=== PATIENT | male | born 1985 | race Caucasian/White ===

== ENCOUNTER 2019-04-17 19:44 | Emergency (ER) | payer SELFPAY ==
[~2019-04-17] VITALS: Ht 185.4 cm; Wt 64.0 kg
--- NOTE | 2019-04-17 19:51 | PHYS DOC ---
Past History Smoking: Cigarettes Adult General Chief Complaint Chief Complaint: LACERATION/AVULSION..." I was cutting some board backing with a hook knife.. with my Lt. hand.. and slipped getting this cut to my Rt. hand... ".. " I was at Urgent care.. .and they sent me here... they numbed it up.. and washed it good..." HPI HPI Patient is a 33 year old male who presents with laceration 12 cm laceration to right hand .Patient was seen at urgent care where laceration was cleaned. Concern for an arterial bleed, so patient sent to the emergency department. Currently no active bleeding. Distal sensation intact. Patient tetanus is reportedly up-to-date. No recent travel. No history immunosuppression. Patient does smoke. Patient is right-hand dominant. Review of Systems Review of Systems Constitutional: Denies fever or chills [] Eyes: Denies change in visual acuity, redness, or eye pain [] HENT: Denies nasal congestion or sore throat [] Respiratory: Denies cough or shortness of breath [] Cardiovascular: No additional information not addressed in HPI [] GI: Denies abdominal pain, nausea, vomiting, bloody stools or diarrhea [] : Denies dysuria or hematuria [] Musculoskeletal: Denies back pain or joint pain [] Integument: Denies rash or skin lesions []complaints of laceration to right hand Neurologic: Denies headache, focal weakness or sensory changes [] Endocrine: Denies polyuria or polydipsia [] All other systems were reviewed and found to be within normal limits, except as documented in this note. Family History Family History Noncontributory Current Medications Current Medications See nursing for home meds Allergies Allergies No known drug allergies Physical Exam Physical Exam Constitutional: Moderate acute distress, non-toxic appearance. [] HENT: Normocephalic, atraumatic, bilateral external ears normal, oropharynx moist, no oral exudates, nose normal. Poor dentition Eyes: PERRLA, EOMI, conjunctiva normal, no discharge. [] Neck: Normal range of motion, no tenderness, supple, no stridor. [] Cardiovascular:Heart rate regular rhythm, no murmur [] Lungs & Thorax: Bilateral breath sounds equal apex with scattered wheezes on auscultation [] Abdomen: Bowel sounds normal, soft, no tenderness, no masses, no pulsatile masses. [] Skin: Warm, dry, no erythema, no rash. [] Back: No tenderness, no CVA tenderness. [] Extremities: No tenderness, no cyanosis, no clubbing, ROM intact, no edema. [] Laceration right hand as per history of present illness Neurologic: Alert and oriented X 3, normal motor function, normal sensory function, no focal deficits noted. [] Psychologic: Affect anxious, judgement normal, mood normal. [] EKG EKG [] Radiology/Procedures Radiology/Procedures [] Course & Med Decision Making Course & Med Decision Making Pertinent Labs and Imaging studies reviewed. (See chart for details) Procedure note-approximately 10-12 cm laceration. The hand clean with saline and Betadine. Injected lidocaine along edge. Reinforced and irrigated laceration and range of motion with normal saline. Closed laceration with 4 mattress sutures. And then 12 running sutures 4-0 Prolene. Patient keep laceration clean and dry. Monitor closely for infection. Use Polysporin 4 times a day. Follow-up primary care. Sutures to be removed in 10 days. Patient return if any concerns. Tylenol and ibuprofen for pain. Impression- 1. Laceration 10-12 cm [] Dragon Disclaimer Dragon Disclaimer This electronic medical record was generated, in whole or in part, using a voice recognition dictation system. Departure Departure: Disposition: 01 HOME/RESIDENCE PRIOR TO ADM Condition: STABLE Referrals: PCP,CONSUELO (PCP) HEAVEN MUÑIZ MD Apr 17, 2019 19:51
[2019-04-17] MEDS ORDERED: DIPHTH,PERTUSS(ACELL),TET TOX 0.5 ML DISP.SYRIN. VAX IM ONE (21:30)
[2019-04-17 21:55] VITALS: BP 112/64
== END 2019-04-17 21:58 | disposition home or self-care (01) ==
LOC: ER 19:44
DX: S61.411A Laceration without foreign body of right hand, initial encounter (principal); F17.210 Nicotine dependence, cigarettes, uncomplicated; W26.0XXA Contact with knife, initial encounter; Y93.89 Activity, other specified; Y92.89 Other specified places as the place of occurrence of the external cause; Y99.8 Other external cause status
CPT/HCPCS: 12004; 90471; 90715; 99283